=== PATIENT | female | born 1995 | race Caucasian/White ===

== ENCOUNTER 2024-12-19 15:18 | Emergency (ER) | payer MEDICAID, SELFPAY ==
[2024-12-19 15:18] VITALS: BMI 30.9
[2024-12-19 15:26] VITALS: BP 153/100; BP 153/102; PULSE 58; RESP 18; TEMP 36.7; O2SAT 97
--- NOTE | 2024-12-19 15:31 | EKG_ITS ---
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
--- NOTE | 2024-12-19 15:31 | XR_ITS ---
EXAMINATION: PA lateral chest 2 views TECHNIQUE: Upright PA lateral chest 2 views Date and time: December 19, 2024, 1612 hours INDICATIONS: Chest pain dizziness today. FINDINGS: Normal heart size Stable small nodule left upper lobe compared with September 02, 2016. No interval pneumonia or pulmonary edema. The osseous rectors are intact IMPRESSION: No interval pneumonia or pulmonary edema
--- NOTE | 2024-12-19 15:31 | PD.EDRME ---
Rapid Medical Screening Exam E Arrival date/time: 12/19/24 15:18 29-year-old female with no known medical history presents to the emergency room with a chief complaint of 5 out of 10 left-sided sternal chest pain that radiates to the x 1 day I have greeted and performed a focused initial assessment of this patient. A comprehensive ED assessment and evaluation of the patient, analysis of all test results, and completion of the medical decision making process will be conducted by additional ED providers. Chief Complaint: Chest Pain Time Seen by Provider: 12/19/24 15:27 Vital signs: Vital Signs Temperature 98.1 F 12/19/24 15:26 Pulse Rate 58 L 12/19/24 15:26 Respiratory Rate 18 12/19/24 15:26 Blood Pressure 153/102 H 12/19/24 15:26 Pulse Oximetry (%) 97 12/19/24 15:26 Oxygen Delivery Method Room Air 12/19/24 15:26 Vital signs reviewed by provider: No Exam: Clear bilateral lung sounds Strong and regular rhythm S1 and S2 noted Clinical Impression: Chest pain/costochondritis/STEMI/NSTEMI
[2024-12-19 16:06] LABS: Basophils # (Auto) 0.0 Thou/mm3 (0.0-0.2); Basophils % (Auto) 0 % (0-2.5); Eosinophils # (Auto) 0.1 Thou/mm3 (0.0-0.5); Eosinophils % (Auto) 1 % (0-10); Hematocrit 39.6 % (36.0-46.0); Hemoglobin 13.4 g/dL (12.0-16.0); Immature Granulocytes Auto 0.02 Thou/mm3 (0.00-0.00); Lymphocytes # (Auto) 1.7 Thou/mm3 (1.0-4.8); Lymphocytes % (Auto) 25 % (10-50); Mean Corpuscular HGB Conc 33.8 g/dl (31.0-37.0); Mean Corpuscular Hemoglobin 31.8 pg (25.0-35.0); Mean Corpuscular Volume 94 fL (80-100); Monocytes # (Auto) 0.5 Thou/mm3 (0.0-0.8); Monocytes % (Auto) 8 % (0-12); Neutrophils # (Auto) 4.4 Thou/mm3 (1.8-7.7); Neutrophils % (Auto) 66 % (37-80); Nucleated Red Blood Cell # 0.00 Thou/mm3 (0.00-0.00); Nucleated Red Blood Cell % 0 /100 WBC (0); Platelet Count 276 Thou/mm3 (140-440); RDW Standard Deviation 39.6 fL (36.4-46.3); Red Blood Count 4.21 Miln/mm3 (4.00-5.20); White Blood Count 6.8 Thou/mm3 (3.6-11.0)
[2024-12-19 16:22] LABS: INR 1.0 (0.9-1.3); Partial Thromboplastin Time 33.9 Seconds (22.0-36.0); Prothrombin Time 10.3 Seconds (9.0-12.2)
[2024-12-19 16:25] LABS: B-Type Natriuretic Peptide 43 pg/mL (0-100)
[2024-12-19 16:28] LABS: Collection Type, Urine Clean Catch
[2024-12-19 16:30] LABS: Alanine Aminotransferase 26 U/L (10-49); Albumin, Serum 4.9 gm/dL (3.5-5.0); Albumin/Globulin Ratio 2.5 (1.2-2.2); Alkaline Phosphatase 63 U/L (46-116); Anion Gap 10 (7-16); Aspartate Amino Transferase 24 U/L (0-34); BUN/Creatinine Ratio 13 Ratio (12-20); Bilirubin,Total 0.9 mg/dL (0.3-1.2); Blood Urea Nitrogen 10 mg/dL (9-23); Calcium 10.3 mg/dL (8.3-10.6); Calcium (Corrected) 10.3 mg/dL (8.5-10.1); Carbon Dioxide 27.0 mMol/L (20.0-31.0); Chloride 105 mMol/L (98-107); Creatinine (Component) 0.8 mg/dL (0.6-1.3); Estimated Creatinine Clearance 106.3 mL/min (>60); Globulin 2.0 gm/dL (2.3-3.5); Glucose 103 mg/dL (74-106); Magnesium 2.0 mg/dL (1.6-2.6); Osmolality,Calculated 282 (275-295); Potassium 4.4 mMol/L (3.4-5.1); Sodium 142 mMol/L (136-145); Total Protein 6.9 gm/dL (5.7-8.2); Troponin I < 0.002 ng/mL (0.0-0.045); eGFR > 60 See Note
[2024-12-19 16:34] LABS: Bilirubin,Urine Negative (Negative); Blood,Urine Trace (Negative); Clarity,Urine Clear (Clear/Hazy); Color,Urine Lt-Yellow (Lt Yel-Yel); Culture Indicated,Urine Not Indicated; Glucose, Urine Negative (Negative); Ketones,Urine Negative (Negative); Leukocyte Esterase,Urine Negative (Negative); Nitrite,Urine Negative (Negative); PH,Urine 5.5 (5.0-7.0); Protein,Urine Negative (Neg - Trace); RBC,Urine 1 /hpf (0-3); Specific Gravity,Urine 1.017 (1.001-1.035); Squamous Epithelial Cell,Urine 1 /hpf (0-5); Urobilinogen,Urine Negative mg/dL (0.0-1.0); WBC,Urine < 1 /hpf (0-5)
[2024-12-19 16:41] LABS: Amphetamine/Methamp Scrn,U Negative (Negative); Barbiturate Screen,Urine Negative (Negative); Benzodiazepines Screen,Urine Negative (Negative); Benzoylecgonine Screen, Ur Negative (Negative); Fentanyl Screen,Urine Negative (Negative); Opiate Screen,Urine Negative (Negative); THC Screen,Urine Negative (Negative)
[2024-12-19 20:04] VITALS: BP 142/79; PULSE 56; RESP 15; TEMP 36.9; O2SAT 100
--- NOTE | 2024-12-19 20:10 | EDNOTE_ITS ---
ED Chest Pain RME/HPI General Chief Complaint: Chest Pain Stated Complaint: CHEST PAIN x 1 DAY, HX ANXIETY Time Seen by Provider: 12/19/24 15:27 Arrival date/time: 12/19/24 15:18 RME / HPI RME / HPI narrative: 12/19/24 15:18 29-year-old female with no known medical history presents to the emergency room with a chief complaint of 5 out of 10 left-sided sternal chest pain that radiates to the x 1 day I have greeted and performed a focused initial assessment of this patient. A comprehensive ED assessment and evaluation of the patient, analysis of all test results, and completion of the medical decision making process will be conducted by additional ED providers. DR. MAXWELL MAIN ED EVALUATION: Patient presenting with fleeting left infrabreast pain of increasing frequency of 24 hours duration with associated palpitations and lightheadedness, although denies near syncope with occasional diaphoresis. No shortness of breath, nausea, vomiting, or LE pain or swelling. LMP 1 month ago. PE Risk Factors: Negative for prolonged travel, Negative for prior personal or family DVT, no recent surgery, no OCP use PMH: Anxiety PSH: Unremarkable Allergies: None Social: Occasional alcohol, Positive for vaping, No illicit drug abuse Exam: Clear bilateral lung sounds Strong and regular rhythm S1 and S2 noted Impression: Chest pain/costochondritis/STEMI/NSTEMI Related Data Previous Rx's ?Medication ?Instructions ?Recorded meclizine 25 mg tablet 25 mg PO QDAY #14 tabs 01/14 naproxen 250 mg tablet 250 mg PO BID PRN pain 5 day s #10 12/19/24 tabs Allergies Allergy/AdvReac Type Severity Reaction Status Date / Time No Known Allergies Allergy Verified 12/19/24 15:20 Review of Systems Review of Systems Systems Reviewed: All systems reviewed, normal except as documented Past Medical History Past Medical History PSYCHO/SOCIAL: Positive Anxiety Social History ALCOHOL: Current ED Exam Narrative Physical exam: GEN. APPEARANCE: The patient is alert awake oriented X-3 under no distress, lying down comfortably, does not look ill/toxic. Patient has good eye contact. Patient is cooperative. VITALS: All vitals were reviewed and the pulse ox is 100%, which is normal according to my interpretation HEENT: Normocephalic, atraumatic and nontender. Pupils are equal and reactive. Oral mucosa is moist. NECK: Supple, nontender, no meningismus, no JVD. There is no thyromegaly and no lymphadenopathy. CHEST: TTP of left costochondral junction and intrabreast region, no deformity and no crepitus. CARDIOVASCULAR: Heart regular rhythm, no murmur, late systolic click, or gallop rub or extra beats. LUNGS: Clear to auscultation bilaterally with symmetrical chest rise. No laboring tachypnea or wheezing. No intercostal subcostal retraction. No rales and no rhonchi. ABDOMEN: Soft, flat, nontender to palpation, no guarding or rebound tenderness. There are no abnormal masses palpated. No pulsatile masses or bruits. Active and normal bowel sounds. EXTREMITIES: Normal inspection and palpation. No edema. No cyanosis. Patient is able to move all 4 extremities well SKIN: Warm and dry, no rashes noted. MUSCULOSKELETAL: No lumbar or midline bony tenderness. There is no CVA tenderness. No paraspinal muscle spasm or tenderness. NEURO: Cranial nerves II through XII grossly intact. There are no focal neurologic deficits noted. GCS is 15 PSYCHIATRIC: Patient is in normal mood and affect, cooperative. LYMPHATICS: No major lymphadenopathy noted. Course Quality Measures none Orders Category Date Time Status EKG (ED ONLY) *Do not use* NOW Care 12/19/24 15:31 Completed EKG (ED Only) Stat Exams 12/19/24 15:31 Draft XR chest 2V Stat Exams 12/19/24 15:31 Completed B-Type Natriuretic Peptide Stat Lab 12/19/24 15:44 Completed CBC Stat Lab 12/19/24 15:44 Completed Comprehensive Metabolic Panel Stat Lab 12/19/24 15:44 Completed Drug Screen,Urine Stat Lab 12/19/24 16:07 Completed Magnesium Stat Lab 12/19/24 15:44 Completed Partial Thromboplastin Time Stat Lab 12/19/24 15:44 Completed Prothrombin Time with INR Stat Lab 12/19/24 15:44 Completed Troponin I Stat Lab 12/19/24 15:44 Completed Urinalysis, C/S if Indicated Stat Lab 12/19/24 16:07 Completed Vital Signs Vital signs: Vital Signs Temperature 98.1 F 12/19/24 15:26 Pulse Rate 58 L 12/19/24 15:26 Respiratory Rate 18 12/19/24 15:26 Blood Pressure 153/102 H 12/19/24 15:26 Pulse Oximetry (%) 97 12/19/24 15:26 Oxygen Delivery Method Room Air 12/19/24 15:26 Chest Pain MDM Narrative MDM Narrative:: Scribe Attestation: I, Sarah Rueda, am scribing for and in the presence of Dr. Maxwell. Provider Notation: Although this document has been carefully reviewed, there may still be some phonetic and other typographical errors. These errors are purely grammatical due to imperfections in the software program and should not be construed in any way to compromise the substance of the patient's medical care during this visit. Patient presenting with fleeting left infrabreast pain of increasing frequency of 24 hours duration with associated palpitations and lightheadedness, although denies near syncope with occasional diaphoresis. No shortness of breath, nausea, vomiting, or LE pain or swelling. Please see PE findings. Laboratory markers, including CBC and serum chemistries, including Troponin I, are unremarkable. UA is negative for infection. Toxicology screen is negative. CXR demonstrates stable small left upper lobe nodule compared to 2017, and is otherwise negative. EKG demonstrates sinus bradycardia with evidence of LVH, no ischemia, infarction, pericarditis, or signs of accessory pathway. Patient's chest pain is atypical for ischemia and reproducible. Will treat with NSAIDS, reassure, and discharge to home. Precautionary instructions issued. Final diagnosis includes chest wall pain. Patient data External records reviewed:: [facility] previous records (Reviewed prior ED records from 01/14/21. Patient was seen for Vertigo.) Clinical information provided by:: patient Social determinants that could affect healthcare access:: alcohol use Patient has the following chronic illnesses:: Anxiety How is presenting disease/condition affected by chronic disease/condition?: exacerbated by Evaluation data The following diagnostics were reviewed and interpreted by me:: lab results, radiology exam(s) and EKG tracing(s) (EKG demonstrates sinus bradycardia with evidence of LVH, no ischemia, infarction, pericarditis, or signs of accessory pathway, per my interpretation.) Lab and/or radiology exams considered but not ordered:: None Interpretation Summary: RADIOLOGY Chest X-Ray: FINDINGS: Normal heart size Stable small nodule left upper lobe compared with September 02, 2016. No interval pneumonia or pulmonary edema. The osseous rectors are intact IMPRESSION: No interval pneumonia or pulmonary edema Medications / Prescriptions Medications or Prescriptions considered but not ordered:: None Medication administrations:: See above if any Consultations Consultation(s) initiated? (list below): No Diagnosis Chest Pain Differential Diagnosis: stable angina, unstable angina pectoris, atypical chest pain, st elevation myocardial infarction, costochondritis and chest pain Most likely diagnosis given after review of the tests above:: Chest Wall Pain Admission Indicated Admission indicated?: not indicated Explain why admission is indicated or not indicated:: Patient does not meet admission criteria Admission Request Was there a request for admission?: No Disposition Plan Disposition Plan: Discharge Discharge Attestation Discharge Attestation: The patient and all family members were given an opportunity to ask questions and understood the discharge instructions. Discharge instructions specifically effects, indications for sooner follow up or return to the emergency department, and the expected course of current diagnosis. Patient condition: Stable Discharge Plan Plan Patient Disposition: HOME (Self Care) Discharge Disposition comment: stable Prescriptions/Referrals Prescriptions/Med Rec: New valacyclovir [Valtrex] 1 gram tablet 1,000 mg PO TID 7 Days Qty: 21 0RF prednisone 20 mg tablet 60 mg PO QDAY 4 Days Qty: 16 0RF Taper: Prednisone Taper 20 mg DAILY for 2 Days and 0 Hour Rx Instructions: 3 tablets daily for 4 days then 2 tablets daily for 4 days then 1 tablet daily for 4 days then 1/2 tablet daily for 4 days then stop Refresh Lacri-Lube 56.8-42.5 % ointment 1 applic ophthalmic (eye) TID 20 Days Qty: 3.5 0RF No Action meclizine 25 mg tablet 25 mg PO QDAY Qty: 14 0RF Referrals: Jett Posey MD [Primary Care Provider, Family Practice] - In 1 week Problem List Clinical Impression: Chest wall pain Patient/Caregiver Discharge Instructions Discharge Activity: activity as tolerated Education Materials: Willis's Palsy Additional Instructions: Take specific care to use Lacri-Lube as directed. Particularly at night. Me dications as directed and follow-up with PMD for referral to neurologist within 1 to 2 weeks. Print Language: [place] Stand Alone Forms: Mirela Award Info., Patient Portal Info Letter
[2024-12-19] MEDS: IBUPROFEN TAB 600 MG TABLET PO (20:44)
== END 2024-12-19 20:47 | disposition home or self-care (01) ==
PROVIDERS: Nurse Practitioner Family; Emergency Provider Emergency Medicine; PCP Family Medicine
DX: M94.0 Chondrocostal junction syndrome [Tietze] (principal); F17.290 Nicotine dependence, other tobacco product, uncomplicated
CPT/HCPCS: 36415; 71046; 80053; 80307; 81001; 83735; 83880; 84484; 85025; 85610; 85730; 93005; 99283; A9270